=== PATIENT | male | born 1960 | race Caucasian/White ===

== ENCOUNTER 2017-02-27 10:06 | Emergency (ER) | payer OTHER ==
[~2017-02-27] VITALS: Ht 167.6 cm; Wt 75.0 kg
[2017-02-27 10:33] VITALS: BP 150/84; PULSE 78; RESP 19; O2SAT 96
[2017-02-27] MEDS ORDERED: oxyCODONE-Acetamin 5-325 mg Tablet PO ONE ×2 (10:50→11:55)
--- NOTE | 2017-02-27 11:00 | ED.REPORT ---
HPI-Trauma Minor / Fall Date of Service Feb 27, 2017 ED Provider: Adriane Singleton MD Patient is a 56-year-old male in with coronary artery disease who was painting, he stepped off a ladder approximately 4 feet up and fell onto his right leg and subsequently his right elbow. He felt his knee give way. She is not having any right elbow pain, she additionally has a small abrasion on his left hand. He rates his pain 8 out of 10 it is on the superior aspect of his right knee primarily and does not radiate. He feels his knee is swollen compared to his left. He did not lose consciousness or hit his head. He is not experiencing any shortness of breath, chest pain, headache, dizziness. Nursing Notes Stated Complaint: FALL OFF LADDER/RIGHT KNEE PAIN Chief Complaint: Extremity Trauma Nursing Notes Reviewed: Yes Allergies: Coded Allergies: No Known Allergies (Unverified , 02/27/17) Scheduled PRN Hydroxyzine Pamoate (Vistaril) 25 Mg Capsule 25 MG PO TID PRN PRN For Anxiety or Agitation oxyCODONE-Acetaminophen 5-325 mg (oxyCODONE-Acetaminophen 5-325 mg) 1 Each Tablet 1-2 TAB PO Q6H PRN PRN For Pain General Time Seen by MD: 10:35 Chief Complaint Fall (from ladder), Extremity pain (right knee) Hx Obtained From: Patient Arrived By: Ambulance Onset Occurred: Just prior to arrival Past Medical History Past Medical History Coronary artery disease Perforated colon Past Surgical History Partial Colon resection status post re-anastomosis Femoral bypass surgery Cardiac angioplasty in 2016 Back surgery Right shoulder rotator cuff repair Family History Noncontributory Smoking History Current Every Day Smoker (1.5 packs per day) Social History Alcohol Use: 3-5 per day Drug Use: THC (occasionally) Other Social History: Ambulatory Status Independent Review of Systems A comprehensive review of systems was conducted with the patient and found to be negative except as above in the History of Present Illness. Physical Exam Initial Vital Signs Vital Signs (First) Date Time Temp Pulse Resp B/P Pulse Ox O2 Delivery O2 Flow Rate FiO2 02/27/17 10:33 36.7 78 19 150/84 96 Room Air Initial VS: Reviewed, Vital signs normal Head / Eyes: Atraumatic, Normocephalic, PERRL ENT: Mucous membranes moist, Conjunctiva normal, No scleral icterus Respiratory: Breath sounds normal, Clear to auscultation, No respiratory distress Cardiovascular: Regular rate & rhythm, Heart sounds normal, Intact distal pulses Abdomen / GI: Soft, Non-tender, No guarding, No rebound, No distention Lymphatic: No lymphadenopathy Skin: Warm, Dry, No cyanosis Neurologic: Alert, Oriented, Nonfocal Psychiatric: Mood/affect normal, Behavior normal, Normal thought content Distress / Hydration: Positive: Distress mild Neck: Atraumatic, Supple Right elbow with small abrasion Left hand with small abrasion, no tenderness to palpation along the bone, normal strength and range of motion. Right Knee: Positive: Deformity present, Patella dislocated (superior and medial), Swelling present... (Moderate) Bilateral feet cool to touch, neurovascularly intact. Interpretation & Diagnostics X-Ray Interpretation Xray Interpretation: Right knee x-ray: Avulsion fracture of the inferior patella, suspected ruptured patellar tendon with soft tissue edema, moderate joint effusion Re-Eval/Medical Decision Med Decision/Clinical Course Patient is a 56-year-old male in with coronary artery disease who was painting at work and fell approximately 4 feet from ladder. He suffered distal patellar tendon rupture with avulsion fracture from tibia. Orthopedics was consulted. MRI was ordered. Patient was placed in a knee immobilizer and given crutches. He was instructed to stop taking Plavix and aspirin. He has an appointment with his floor covering printer in [place] tomorrow for cardiac clearance preoperatively. He is to ice and elevate the knee. He has an appointment scheduled with orthopedics on Monday. Patient was discharged home in stable condition. He was prescribed Percocet 5-325 #40 along with Vistaril for his anxiety. Consultation : Referral / Consult Name: Emery Monte MD Consulted With: Orthopedic Call Returned at: 12:00 Line Pilot: Will see in office, Agrees with eval Note: Recommend ice and elevation, knee immobilizing, stopping Plavix and aspirin. Will see patient in office on Monday. We will contact floor covering printer's office to assess whether bridging with Lovenox is necessary or not. They will prescribe medication if necessary. Counseled Regarding: Diagnosis, Need for follow-up, When/why to return to ED Discharge & Departure Disposition: Home Discharge Condition All VS Reviewed: Yes Patient Instructions: Crutch Instructions (ED), Patella Tendon Repair (GEN) Additional Instructions: Thank you for entrusting us with your care today. You have had a rupture of your patellar tendon. You have been scheduled for an appointment with cardiology in [place] and orthopedics in [place]. [facility] Wednesday 02/28 @9:00 DR LOPEZ [phone] for CARDIAC CLEARANCE [facility] Thursday 03/01 @8:15 DR. MONTE Please stop taking your Plavix and aspirin at this time. You may discuss this with your floor covering printer tomorrow. Please keep your right knee and mobile. Keep your right leg elevated and ice your knee. You have been given a set of crutches as well. Referrals: CARDIOLOGY,[facility] Emery Monte MD Attending Statement Patient seen and examined with Dr. Ball. 4 foot fall onto right knee. Has a distal patellar tendon rupture. Consult with Dr. Monte, recommendation was MRI today, long leg immobilizer, crutches. Follow-up with her on Monday with additional planning at that time based on results of MRI from today Agree with plan and documentation as above copies to: CARDIOLOGY,[facility]; Emery Monte MD, Erika R DO Feb 27, 2017 11:00 Adriane Singleton MD Feb 27, 2017 14:42
--- NOTE | 2017-02-27 11:43 | DRSVH ---
CORRECTED PATIENT FIRST NAME ON 03/01/17 PROCEDURE: X-RAY RIGHT KNEE, THREE VIEWS ([id number]) INDICATIONS: Fall from ladder R knee pain TECHNIQUE: 3 views of the knee were acquired. COMPARISON: None. FINDINGS: Bones: There is a fracture in the inferior patella with the fragment displaced inferiorly by 1.1 cm. There is superior subluxation of patella, likely secondary to rupturing the patellar tendon. There is a corticated ossicle near the pubic tubercle, probably sequelae of old injury. Soft tissues: Marked soft tissue swelling in prepatellar and infrapatellar region. The patellar tendo n is likely ruptured. There is moderate effusion. No suspicious soft tissue calcifications. IMPRESSION: 1. There is an avulsion fracture fragment below the patella with 1.1 cm displacement. 2. Suspected rupturing of the patellar tendon with superior subluxation/displacement of patella and m arked infrapatellar soft tissue edema. 3. Moderate knee joint effusion. 1. Dictated by: Gary Sierra M.D. on 02/27/2017 at 10:34 Approved by: Gary Sierra M.D. on 02/27/2017 at 10:41
[2017-02-27] MEDS: HYDROmorphone 0.5 mg/0.5 mL iSecure Syringe IVPUSH PRN ×2 (12:10→12:28)
[2017-02-27] MEDS ORDERED: OXYC1TAB24 PO (13:24)
--- NOTE | 2017-02-27 13:49 | DRSVH ---
PROCEDURE: MRI KNEE RIGHT WITHOUT CONTRAST ([id number]) INDICATIONS: Fall with ruptured distal patellar tendon TECHNIQUE: Noncontrast sagittal PD fast spin echo and T2 fast spin echo with fat saturation, sagittal 3-D FLASH with fat saturation; coronal T1 spin echo and PD fast spin echo with fat saturation, and axial PD fas t spin echo with fat saturation through the knee. COMPARISON: [facility], CR, XR KNEE 3VW RT, 02/27/2017, 11:05. FINDINGS: Image quality: Excellent. Menisci: The medial and lateral menisci demonstrate normal morphology and internal signal. The meni scal root ligaments appear intact. Cruciate ligaments: The anterior and posterior cruciate ligaments appear intact. Medial structures: The medial collateral ligament appears intact. The semimembranosus tendon inserti ons and meniscocapsular junction appear intact. Visualized portions of the pes anserinus tendons sloane ear intact without associated bursal fluid collections. Lateral structures: The lateral collateral ligament, long and short heads of the biceps femoris tend on appear intact. The popliteus tendon appears intact. Iliotibial band demonstrates partial tearing anteriorly. Anterior structures: There is an avulsion fracture of the patella tendon from the inferior aspect of the patella retraction of the tendon distally by approximately 1.2 cm. There is tendinopathy within the patella tendon. The quadriceps tendon appears intact. There is extensive tearing along the med ial and lateral retinacula inferiorly with a large amount of prepatellar fluid and edema. There is a lso extensive edema within the infrapatellar fat pad . There is mild proximal displacement of the pa tella as well as medial shift. Bones and cartilage: As noted above, there is a small avulsion fracture fragment from the inferior a spect of the patella. No fractures or bone contusions within the distal femur, proximal tibia, or pr oximal fibula. The articular cartilage in the medial and lateral compartments appear grossly preserv ed. There is a small focus of chondral fissuring within the lateral patellar facet. Joint space: There is a large joint effusion with internal signal heterogeneity suggestive of blood product. No Gutierrez's cyst. IMPRESSION: 1. Avulsion fracture of the patella tendon from the inferior patella with displacement by approximat luana 1.2 cm. There is extensive tearing along the medial and lateral retinacula with large amount of prepatellar and infrapatellar fluid and edema. 2. Mild proximal and medial displacement of the patella. 3. Large joint effusion with internal heterogeneity suggestive of blood product. Dictated by: Malvin Leigh M.D. on 02/27/2017 at 13:32 Approved by: Malvin Leigh M.D. on 02/27/2017 at 13:47
[2017-02-27] MEDS ORDERED: HYDR25CA PO (13:56)
[2017-02-27 14:39] VITALS: BP 127/76; PULSE 87; RESP 16; O2SAT 98
[2017-03-01] MEDS ORDERED: LISI10TA PO (09:23)
[2017-03-01] MEDS ORDERED: ASPI-973 PO (09:23)
[2017-03-01] MEDS ORDERED: LIP40 PO (09:23)
[2017-03-01] MEDS ORDERED: CLOP300 PO (09:23)
== END 2017-02-27 14:15 | disposition home or self-care (01) ==
LOC: SED 10:06 → EDBD 10:06 → SED 14:15
DX: S86.811A Strain of other muscle(s) and tendon(s) at lower leg level, right leg, initial encounter (principal); W11.XXXA Fall on and from ladder, initial encounter; Y93.89 Activity, other specified; Y92.69 Other specified industrial and construction area as the place of occurrence of the external cause; Y99.0 Civilian activity done for income or pay; I25.10 Atherosclerotic heart disease of native coronary artery without angina pectoris; F17.200 Nicotine dependence, unspecified, uncomplicated
CPT/HCPCS: 73562; 73721; 99284; J1170

== ENCOUNTER 2017-03-03 11:50 | Day surgery (SDC) | payer OTHER ==
[2017-03-03] VITALS (8 sets, daily range): BP systolic 143–168; BP diastolic 74–101; PULSE 84–102; RESP 10–28; O2SAT 94–97
[~2017-03-03] VITALS: Ht 170.2 cm; Wt 74.8 kg
--- NOTE | 2017-03-03 06:39 | PCM.HPANE ---
Patient Data Surgeon Admitting Provider: Attending Provider:Emery Bowman MD Primary Care Physician:Katerina Other Provider:Naif Grant Anesthesia Reason for Visit Right Patellar Tendon Rupture Ht/WT & BMI Height (Feet): 5 Height (Inches): 7 Weight (Kilograms): 75.7 Body Mass Index 26.00 Allergies Coded Allergies: Penicillins (Verified Allergy, Severe, hives, 03/01/17) amoxicillin (Verified Allergy, Severe, Hives, 03/01/17) acetaminophen (Verified Adverse Reaction, Intermediate, Hyperactivity, 03/01) hydrocodone (Verified Adverse Reaction, Intermediate, Hyperactivity, ) Past Anesthesia History Anesthesia History: Positive for:: Anesthesia Reactions (Takes a lot of anesthesia to go out), Denies:: Abnormal Airway, Difficult Intubation, Fam Anesthesia Reaction, Fam Malignant Hypertherm, Malignant Hyperthermia Diabetes History Hx Diabetes?: No MRSA MRSA: No Medications Blood Thinner: Plavix Last Dose Blood Thinner: Feb 28, 2017 Hypertension Medication: No Home Meds Incl Beta Jc: Yes Active Scripts Hydroxyzine Pamoate (Vistaril)25 Mg Hverinv11 Mg PO TID PRN For Anxiety or Agitation #30 CAPSULE Ref 0 Prov:Julieta Ball DO 02/27/17 Reported Medications Carvedilol 3.125 Mg Tablet6.25 Mg PO BID #60 03/03/17 Clopidogrel 75 Mg Vishrf52 Mg PO DAILY #30 03/03/17 oxyCODONE-Acetaminophen 5-325 mg 1 Each Tablet1 Tab PO Q4H PRN For Pain Ref 0 03/03/17 Aspirin 81 Mg Pkvtvk23 Mg PO DAILY Ref 0 03/01/17 Atorvastatin (Lipitor)40 Mg Swxris41 Mg PO DAILY Ref 0 03/01/17 Lisinopril 10 Mg Ndmeoj54 Mg PO DAILY 30 Days Ref 0 03/01/17 Discontinued Reported Medications Clopidogrel Bisulfate (Plavix)300 Mg [id number] Mg PO BID 03/01/17 Discontinued Scripts oxyCODONE-Acetaminophen 5-325 mg 1 Each Tablet1-2 Tab PO Q6H PRN For Pain #40 TABLET Prov:Julieta Ball DO 02/27/17 History History of ENT Problems?: No HEENT History: Denies:: Abnormal Airway Cataracts Difficult Intubation Dysphagia Glaucoma Hearing Problem Sinus Problem TMJ Denture Type: None Teeth Condition: Within Normal Limits Other HEENT Pertinent History: poort teeth mssing teeth Hx of Heart Problems?: Yes Cardiovascular History: Positive for:: Cardiac Surgery (catherization with stent 2015) Coronary Artery Disease (stent right artery 04/15) Denies:: AICD Abdominal Aortic Aneurism Atrial Fibrillation Congestive Heart Failure Edema Heart Murmur Hypertension Irregular Heartbeat Pacemaker Peripheral Vascular Rheumatic Fever Thrombophlebitis Valvular Heart Disease Other Cardiac History: on beta jc carvedilol. last monday becase of stress test Monday Hx of Respiratory Problem?: No Respiratory History: Denies:: Tuberculosis Use of C-PAP Machine Hx Neurologic Problems?: Yes Neurological History: Positive for:: Dizziness (secondary to high B/P) Headaches (secondary to high B/P) Denies:: Alzheimer's Disease CVA Dementia Multiple Sclerosis Parkinson's Disease Seizures TIA Hx of GI Problems?: No Hx of Problems?: Yes Genitourinary History: Positive for:: Kidney Stones (2005) Denies:: HX of Hemodialysis Urinary Tract Infection HX of Peritoneal Dialysis: No Male Hx: Denies:: Prostate Problems Scrotal Mass Testicular Surgery Skin History: Denies:: History Skin Disorders? 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 tore tendon Hx of Psycho/Social Problems?: Yes Psycho Social History: Positive for:: Anxiety (hospital and surgery related occurance) Hx Surgeries?: Yes (Cardiac stent, Lami, shoulder repair, colectomy) Other History: Positive for:: Hospitalization (01/2017) Denies:: Cancer Endocrine Disease Thyroid Disease History Blood Transfusions: Positive for:: Accept Blood Products? Denies:: Blood Transfusions Hx Diabetes: No Hx Alcohol Use: YesAlcoholic Drinks Per Day: 6 pack 16 oz cans beer a day for past 6 yearsHx Substance Use: Yes (marijuana socially ) Smoking Status: Current Every Day Smoker Heavy Tobacco Smoker Have You Smoked inLast 12 mo: YesApprox How Many Cigarettes/day: 20 Stop/Bang S-Snoring: Do You Snore Loudly: No T-Tired: feel tired, fatigued: No O-Obsered: Observed not breath: No P-Blood Pressure: treated: No B- Body Mass Index > 35 kg/m2: No A- Age over 50: Yes N- Neck Large Circumference: No G- Gender Male: Yes MUNIRA Total Score: 2 MUNIRA Risk Assessment: Low Risk, <3 Yes Risk Assessment Category Category 1A: Patient has history of documented sleep apnea, and HAS NOT received any narcotic, sedative or anesthesia administration during this stay. Category 1B: Patient has history of documented sleep apnea, and HAS received any narcotic , sedative or anesthesia administration during this stay Category 2: Patient has SUSPECTED Obstructive Sleep Apnea, and HAS received any narcotic , sedative or anesthesia administration during this stay. Category 3: Patient has SUSPECTED Obstructive Sleep Apnea and HAS NOT received narcotic, sedative or anesthesia administration during this stay. Category 4: Outpatient in Procedural Areas with known sleep apnea or who screen positive for High Risk via the STOP/BANG questionnaire. Exam Exam General Appearance: Alert, Oriented X3, Cooperative, No Acute Distress HEENT/AIRWAY: MP 2 Lungs: Clear to Auscultation, Normal Air Movement Heart: Exam Unremarkable, Regular Rate/Rhythm, No Murmurs/Rubs/Gallops Additional Information missing teeth Plan Impression Patient chart reviewed, patient interviewed and anesthestic plan with risks, benefits, and alternatives discussed, and informed consent obtained. NPO per Anesth. Guidelines: Yes ASA Physical Status: ASA3 Severe Disease Anesthetic Plan: GA Bene/Risks/Altern/Consents: Yes HP Complete Prior to Induction: Yes Other continues to smoke in spite of fem fem bypass. on plavix last dose Monday. on beta jc last dose monday Shayne Beard MD Mar 03, 2017 06:39
[~2017-03-03 11:50] MED LIST: ASPI-973 PO; CLOP300 PO; CeFAZolin Inj 2 GM in IV Premix 1 EACH IV SCH; Clindamycin 900 mg/50 mL D5W IV SCH; HYDR25CA PO; LIP40 PO; LISI10TA PO; Lactated Ringer's 1,000 ML IV SCH; OXYC1TAB24 PO
[2017-03-03] MEDS ORDERED: Dexamethasone 4 mg/mL Inj ONE (11:51)
[2017-03-03] MEDS ORDERED: Propofol 10,000 mCg/mL 20 mL Inj ONE (11:51)
[2017-03-03] MEDS ORDERED: HYDROmorphone 1 mg/mL Inj ONE (11:51)
[2017-03-03] MEDS ORDERED: fentaNYL-PF 50 mCg/mL 2 mL Inj ONE (11:51)
[2017-03-03] MEDS ORDERED: Ondansetron 2 mg/mL 2 mL Inj ONE (11:51)
[2017-03-03] MEDS: Lactated Ringer's 1,000 ML IV SCH ×2 (11:59→13:54)
[2017-03-03] MEDS ORDERED: OXYC1TAB24 PO (12:31)
[2017-03-03] MEDS ORDERED: CARV3.122 PO (12:36)
[2017-03-03] MEDS ORDERED: CLOP75TA28 PO (12:36)
--- NOTE | 2017-03-03 14:16 | DRSVH ---
PROCEDURE: X-RAY LEFT SHOULDER, MINIMUM TWO VIEWS ([id number]) INDICATIONS: PAINFUL LEFT SHOULDER TECHNIQUE: 3 views of the shoulder were acquired. COMPARISON: None. FINDINGS: Bones: No fractures or dislocations there is superior subluxation of the humeral head at the glenoid fossa to the degree that a supraspinatus rotator cuff tear would be suspected. No suspicious bony l esions. Visualized ribs appear intact. Soft tissues: No suspicious soft tissue calcifications. IMPRESSION: Suspect supraspinatus rotator cuff tear given the subluxation superiorly of the humeral h ead towards the undersurface of the acromium. Dictated by: Herbert Coffey M.D. on 03/03/2017 at 14:13 Approved by: Herbert Coffey M.D. on 03/03/2017 at 14:14
[2017-03-03] MEDS ORDERED: Lactated Ringer's 500 ML IV PRN (14:27)
[2017-03-03] MEDS ORDERED: Lactated Ringer's 1,000 ML IV SCH (14:27)
[2017-03-03] MEDS ORDERED: Bupivacaine-MPF 0.5% 30 mL Inj INFILTRATE ONE (14:28)
[2017-03-03] MEDS ORDERED: Labetalol 5 mg/mL 4 mL Inj IV PRN (14:30)
[2017-03-03] MEDS ORDERED: HYDROmorphone 1 mg/mL Inj IVPUSH PRN (14:30)
[2017-03-03] MEDS ORDERED: EPHEDrine Sulfate 50 mg/mL Inj IVPUSH PRN (14:30)
[2017-03-03] MEDS ORDERED: Atropine 0.4 mg/mL Inj IVPUSH PRN (14:30)
[2017-03-03] MEDS ORDERED: Ondansetron 2 mg/mL 2 mL Inj IVPUSH PRN (14:30)
[2017-03-03] MEDS ORDERED: Dexamethasone 4 mg/mL Inj IVPUSH PRN (14:30)
[2017-03-03] MEDS ORDERED: MetoCLOpramide 5 mg/mL 2 mL Inj IVPUSH PRN (14:30)
[2017-03-03] MEDS ORDERED: Phenylephrine 10,000 mCg/mL Inj IVPUSH PRN (14:30)
[2017-03-03] MEDS ORDERED: Lactated Ringer's 1,000 ML IV ONE (16:45)
--- NOTE | 2017-03-03 17:06 | DRSVH ---
PROCEDURE: X-RAY RIGHT KNEE, ONE OR TWO VIEWS ([id number]) INDICATIONS: C-ARM ASSISTED RIGHT KNEE TENDON REPAIR TECHNIQUE: 2 views of the knee were acquired. COMPARISON: [facility], CR, XR KNEE 3VW RT, 02/27/2017, 11:05. FINDINGS: Bones: Fluoroscopic images demonstrate appropriate positioning of the patella which was previously slade periorly displaced. Bony fragment seen adjacent to the proximal pole of the patella is not currently seen. Soft tissues: No joint effusion. No suspicious soft tissue calcifications. IMPRESSION: Appropriate position of the patella seen on the fluoroscopic images and the small bony fr agment seen adjacent to the Inferior pole of the patella is not visualized. Dictated by: Reji Funez [facility] Interpreted: Ranjith Fowler MD on 03/03/2017 at 16:53 Approved by: Ranjith Fowler M.D. on 03/03/2017 at 17:04
[2017-03-03] MEDS ORDERED: oxyCODONE-Acetamin 5-325 mg Tablet PO PRN (17:40)
--- NOTE | 2017-03-03 17:44 | PCM.ANEP1 ---
Post Anesthesia PACU Phase 1 Assessment Vital Signs Vital Signs Date Time Temp Pulse Resp B/P Pulse Ox O2 Delivery O2 Flow Rate FiO2 03/03/17 12:11 37.0 84 16 143/74 95 Room Air Anesthetic Administered: GA Level of Alertness: Awake, talking HUDSON's with Equal Strength: Yes Pain: No Nausea or Vomiting: No CV Function & Hydration Stable: No Airway Device: Oxygen Delivery: Simple Mask Lungs: Clear to Auscultation, Normal Air Movement PACU Phase 2 Assessment Complications: No Follow up Care: No Patient Instructions Provided: N/A Shayne Beard MD Mar 03, 2017 17:44
[2017-03-03] MEDS: fentaNYL-PF 50 mCg/mL 2 mL Inj IVPUSH PRN ×2 (17:47→18:04)
[2017-03-03] MEDS ORDERED: hydrOXYzine Pamoate 25 mg Capsule PO PRN (18:05)
--- NOTE | 2017-03-04 07:09 | OP ---
[address] [address] OPERATIVE REPORT PATIENT: MUMTAZ MORILLO : 1960 MR#: [id number] ADMIT: 03/03/2017 JOB ID: [id number] DATE OF SURGERY: 03/03/2017 PREOPERATIVE DIAGNOSIS(ES): 1. Right knee patellar tendon rupture from the inferior pole of the patella, ICD-10 code S86.811A. 2. Medial and lateral retinacular and capsular tears. POSTOPERATIVE DIAGNOSIS(ES): 1. Right knee patellar tendon rupture from the inferior pole of the patella, ICD-10 code S86.811A. 2. Medial and lateral retinacular and capsular tears. PROCEDURE: 1. Primary repair of patellar tendon through drill holes through the patella for an inferior patellar avulsion, CPT code 49926. 2. Right knee medial and lateral retinacular and capsular repairs, CPT Code 32263. SURGEON: Emery Bowman MD. WARDROBE MISTRESS: Yoandy Cardona PA-C. Yoandy Cardona PA-C was an interval portion of the procedure opening and maintaining reduction and retraction. ANESTHESIA: General. ESTIMATED BLOOD LOSS: 35 mL. DRAINS: None. COMPLICATIONS: None. INDICATIONS: This is a 56-year-old male who was on a ladder at work and did not realize how high he was, stepped off the ladder and he sustained a rupture of the inferior pole of his right patella tendon. There was a very small felton of bone but the patellar tendon was ruptured and retracted. The MRI scan also showed that there were tears of the medial and lateral retinaculum and joint capsule. DESCRIPTION OF PROCEDURE: Under a general anesthetic, a well-padded tourniquet was applied to the right thigh. The right leg was prepped and draped in a sterile fashion. After appropriate time-out was called, the leg was elevated, exsanguinated, and tourniquet inflated to 300 mmHg. Longitudinal incision was fashioned over the midline of the patella, down the patellar tendon. The paratenon along the patellar tendon was incised and tagged for later repair. Care was taken to protect the inferior patellar branch of the saphenous nerve. The knee bursa was also incised. The anterior portion of the patella was exposed, and it was noted that a portion of the patellar tendon was also avulsed from the anterior portion of the patella, not just the inferior pole alone. Delineation where the avulsed tendon was ruptured was identified. I performed a suture repair with #5 FiberWire utilizing Krackow suture technique. Two double rows of sutures were placed. The sutures were passed through the tendon posteriorly to be able to be passed through the patella itself. Utilizing a 2.0 drill bit, I drilled three holes, one central, one medial and one lateral, through the patella and documented good position of the drill holes on AP and lateral views. Through the drill holes I passed a [employer] suture passer. The most medial suture was passed through the medial hole, the most lateral suture was passed through the lateral hole and the two central portions of the suture were passed through the central hole. The sutures were then tied over the top of the patella, adjusting the tension appropriately and documented this with image intensification with the position of the patella. After the sutures were tied, they were cut. I did repair the joint synovium with some interrupted sutures of 0 Vicryl. The retinaculum was repaired with interrupted [id number] sutures of #2 FiberWire. I also repaired the portion of the tendon that was avulsed from the anterior portion of the patella with some additional #2 FiberWire. This seemed to provide good stability of the repair, and the repair was tightened with the knee in just a small amount of slight flexion. The paratenon over the patellar tendon was repaired with interrupted [id number] sutures of 0 Vicryl. After the repair, it was noted that all of the FiberWire sutures were covered with paratenon and soft tissue. The wound was irrigated with an antibiotic solution. The tourniquet released. Minimal hemostasis required. Subcutaneous layers were closed with interrupted sutures of 0 and 2-0 Vicryl, and skin was reapproximated with hector. The patient did have a tendency to a small amount of bleeding since he had been on Plavix this past week but he had not taken his Plavix for several days. I therefore did opt to use hector rather than a subcuticular suture. This would allow for drainage. Xeroform, dry sterile gauze, cast padding and Angelo wraps were applied. The patient was also placed in a knee brace with the leg in extension. The patient was taken to recovery room in stable condition. Sponge and needle count correct. No complications. No specimen to Pathology. PLAN: The patient did not want to stay overnight for observation. He was discharged to home on Lovenox 40 subcu daily for three weeks. He was also discharged to home on clindamycin 300 mg three times a day for a few days, as well as Percocet 10/325. The patient does smoke, and he may well have slower healing because of this. FOLLOWUP PLAN: The patient will be seen in the office in followup in two weeks for dressing change and staple removal if the wound is amenable for staple removal. He has remained in the knee immobilizer. He may be partial weightbearing, touchdown weightbearing about 30% of his body weight. He should not bend the knee at this time. The patient is remain off work at this time. He is also to take his Lovenox to decrease risk for DVT. If the patient has any questions or concerns, he may contact the office. He already has a wheelchair, as well as crutches or a walker. We also did write him a prescription for a leg lift loop that he could wrap around his foot and help lift his legs, so he does not try to use the weight of the leg and lift the leg with his patellar tendon rupture.
== END 2017-03-03 23:59 | disposition home or self-care (01) ==
LOC: SAS 11:50
PROVIDERS: ATTEND Orthopaedic Surgery
DX: S86.811A Strain of other muscle(s) and tendon(s) at lower leg level, right leg, initial encounter (principal); S86.911A Strain of unspecified muscle(s) and tendon(s) at lower leg level, right leg, initial encounter; I10 Essential (primary) hypertension; I25.10 Atherosclerotic heart disease of native coronary artery without angina pectoris; J44.9 Chronic obstructive pulmonary disease, unspecified; I49.3 Ventricular premature depolarization; F17.210 Nicotine dependence, cigarettes, uncomplicated; W11.XXXA Fall on and from ladder, initial encounter; Y93.9 Activity, unspecified; Y92.9 Unspecified place or not applicable; Y99.0 Civilian activity done for income or pay; Z79.82 Long term (current) use of aspirin; Z79.02 Long term (current) use of antithrombotics/antiplatelets; Z95.5 Presence of coronary angioplasty implant and graft
CPT/HCPCS: 27380; 27405; 73030; 73560; 76001; J1100; J1170; J2175; J2250; J2405; J3010; J3490; J7120